=== PATIENT | female | born 1935 | race Caucasian/White ===

== ENCOUNTER → 2019-01-11 | Outpatient (REF) | payer MEDICARE, MEDICAID, OTHER ==
[~2019-01-11] MED LIST: ADVAIR HF1 IN; ALTOPREV40 MG OR; ASPIRIN LOW DOS81 M2 PO; BACTRIM DS1 TAB PO; CEFTIN500 MG PO; CITRACAL + D3 MAXIMU OR; CITRACAL OR; COUGH DM30 MG/5 ML PO; COUMADIN5 MG PO; COUMADIN7.5 MG PO; FENOFIBRATE PO; FENOFIBRATE145 MG PO; FISH OIL1000 MG PO; GABAPENTIN600 MG PO; HOME O2; IMDUR60 MG PO; ISOSORB MONO30 MG PO; ISOSORB MONO60 MG OR; ISOSORBID1 PO; KETOCONAZOLE2 % EX; LEVOTHYROXIN100 MCG PO; LOPRESSOR50 MG OR; LORATADINE10 M1 PO; LORTAB 5 OR; LYRICA75 MG OR; MAXZIDE-2537.5 MG/TA PO; METOCLOPRAM10 MG OR; MUPIROCIN2 % EX; NEURONTIN300 MG OR; NEURONTIN600 MG PO; NITRO-DUR0.4 MG/HR TD; NITROFURANTN100 M1 OR; NITROSTAT0.4 MG PO; OCUVIT1 PO; OFLOXACIN0.31 OS; PERCOCET 5/325M1 TAB PO; PRILOSEC10 MG PO; PRILOSEC20 MG PO; PROVENTIL INH17 GM IN; REGLAN10 MG OR; REGLAN10 MG PO; ROBITUSSIN AC10 ML OR; SIMVASTATIN40 MG PO; SIMVASTATIN80 MG PO; STOOL SOFTENER100 MG OR; SYNTHROID75 MCG OR; SYNTHROID75 MCG PO; TRAMADOL HCL50 MG OR; TRIPLE ANTI1 EX; TYLENOL ARTH650 M1 PO; ULTRAM50 M1 PO; VENTOLIN HFA IN; WARFARIN5 MG OR; WARFARIN5 MG PO; ZINC50 MG PO; ZPAK OR; [UNRECOGNIZED DRUG - OTHER] OR; [UNRECOGNIZED DRUG - OTHER] OR
[2019-01-11 13:00] LABS: HEMATOCRIT 47.8 % (37.0-47.0); HEMOGLOBIN 15.5 g/dl (12.0-16.0); IMMATURE GRANULOCYTES 0.5 % (0.0-5.0); MEAN CELL VOLUME 93.7 fL CALC (80.0-100.0); MEAN CORPUSCULAR HGB 30.4 pG CALC (26.0-32.0); MEAN CORPUSCULAR HGB CONC 32.4 g/L CALC (32.0-36.0); RED BLOOD COUNT 5.1 mill/uL (4.20-5.60); RED CELL DISTRI WIDTH 12.8 % (11.5-15.5)
[2019-01-11 13:14] LABS: ALBUMIN 4.3 g/dL (3.2-5.0); ALKALINE PHOSPHATASE 45 u/l (38-126); ANION GAP 14 (6-22 (CALC)); BILIRUBIN, TOTAL 0.7 mg/dL (0.0-1.4); BUN 15 mg/dL (8-23); BUN/CREATININE RATIO 25 (12-20 (CALC)); CALCULATED LDLCHOLESTEROL 166 mg/dL (62-129 (CALC)); CARBON DIOXIDE 29 mmol/l (22-30); CHLORIDE 97 mmol/l (95-108); CHOLESTEROL HDL RATIO 4.3 (<4.4 (CALC)); CREATININE 0.6 mg/dL (0.5-1.0); GFR > 60 ML/MIN (>=60 (CALC)); GFR FOR AFR.AMER. > 60 ML/MIN (>=60 (CALC)); HDL CHOLESTEROL 55 mg/dL (>=40); POTASSIUM 4.3 mmol/l (3.5-5.1); SGOT/AST 32 u/l (9-36); SODIUM 135 mmol/l (137-146); TOTAL CHOLESTEROL 239 mg/dl (0-199); TOTAL PROTEIN 6.9 g/dL (6.3-8.2); TOTAL TRIGLYCERIDES 86 mg/dl (30-149); VLDL CHOLESTROL 17 mg/dl (0-48 (CALC))
[2019-01-11 13:42] LABS: TSH, 3RD GENERATION 3.41 uIU/mL (0.47 - 4.68)
== END | disposition home or self-care (01) ==
LOC: LAB 12:00
PROVIDERS: ATTEND Family Medicine
DX: I10 Essential (primary) hypertension (principal); E78.5 Hyperlipidemia, unspecified; E03.9 Hypothyroidism, unspecified; Z00.00 Encounter for general adult medical examination without abnormal findings; Z13.89 Encounter for screening for other disorder; B37.2 Candidiasis of skin and nail; I25.10 Atherosclerotic heart disease of native coronary artery without angina pectoris; I26.99 Other pulmonary embolism without acute cor pulmonale; J44.9 Chronic obstructive pulmonary disease, unspecified; G47.33 Obstructive sleep apnea (adult) (pediatric); F41.9 Anxiety disorder, unspecified; G60.9 Hereditary and idiopathic neuropathy, unspecified; M54.30 Sciatica, unspecified side; M15.8 Other polyosteoarthritis; N30.20 Other chronic cystitis without hematuria; E55.9 Vitamin D deficiency, unspecified; B35.1 Tinea unguium; Z86.010 Personal history of colon polyps; K21.9 Gastro-esophageal reflux disease without esophagitis; H35.30 Unspecified macular degeneration; M81.0 Age-related osteoporosis without current pathological fracture

== ENCOUNTER 2019-02-08 11:25 | Emergency (ER) | payer MEDICARE, MEDICAID, OTHER ==
[~2019-02-08] VITALS: Ht 157.5 cm; Wt 90.0 kg
[2019-02-08 12:14] LABS: URINE BILIRUBIN - DIPSTICK NEGATIVE (NEGATIVE); URINE BLOOD DIPSTICK NEGATIVE (NEGATIVE); URINE COLOR YELLOW; URINE GLUCOSE - DIPSTICK NEGATIVE (NEGATIVE); URINE KETONE NEGATIVE (NEGATIVE); URINE LEUK ESTERASE NEGATIVE (NEGATIVE); URINE NITRITE - DIPSTICK NEGATIVE (Negative); URINE PH 6.5 (4.5-8.0); URINE PROTEIN - DIPSTICK TRACE mg/dL (NEG-TRACE); URINE UROBILINOGEN - DIPSTICK 0.2 E.U./dL (0.2)
[2019-02-08] MEDS ORDERED: LEVOTHYROXIN100 MCG PO (12:26)
[2019-02-08] MEDS ORDERED: METOPROL TAR25 MG PO (12:26)
[2019-02-08] MEDS ORDERED: NAPROXEN250 MG PO (12:26)
[2019-02-08] MEDS ORDERED: OMEPRAZOLE10 MG PO (12:27)
[2019-02-08] MEDS ORDERED: ALENDRONATE70 MG PO (12:30)
[2019-02-08] MEDS ORDERED: DYMISTA1 SPR (12:31)
[2019-02-08 13:50] VITALS: BP 150/86
== END 2019-02-08 13:50 | disposition home or self-care (01) ==
LOC: ED 11:25
DX: S30.0XXA Contusion of lower back and pelvis, initial encounter (principal); W01.0XXA Fall on same level from slipping, tripping and stumbling without subsequent striking against object, initial encounter; Y93.01 Activity, walking, marching and hiking; Y92.000 Kitchen of unspecified non-institutional (private) residence as the place of occurrence of the external cause; R30.9 Painful micturition, unspecified; I10 Essential (primary) hypertension